=== PATIENT | female | born 1970 | race Caucasian/White ===

== ENCOUNTER 2017-08-05 06:00 | Inpatient (IN) | payer MEDICAID ==
[2017-08-05] MEDS ORDERED: Gabapentin 300 MG Cap PO ONE (06:15)
[2017-08-05] MEDS ORDERED: Scopolamine 1.5 MG Transdermal Patch TOP SCH (06:15)
[2017-08-05] MEDS ORDERED: Glycopyrrolate 0.2 MG/ML 5 ML MDV ONE (06:28)
[2017-08-05] MEDS ORDERED: Succinylcholine 200 MG/10 ML MDV ONE (06:28)
[2017-08-05] MEDS ORDERED: Rocuronium 50 MG/5 ML Vial ONE (06:28)
[2017-08-05] MEDS ORDERED: Ondansetron 4 MG/2 ML SDV ONE (06:28)
[2017-08-05] MEDS ORDERED: Dexamethasone 4 MG/ML SDV ONE (06:28)
[2017-08-05] MEDS ORDERED: Propofol 200 MG/20 ML SDV ONE (06:28)
[2017-08-05] MEDS ORDERED: Neostigmine Methylsulfate 1 MG/ML 5 ML Syringe ONE (06:28)
[2017-08-05] MEDS ORDERED: fentaNYL 250 MCG/5 ML SDV ONE ×2 (06:29→09:57)
[2017-08-05] MEDS ORDERED: Thrombin (Bovine) 5,000 Unit Kit ONE (06:55)
[2017-08-05] MEDS ORDERED: Povidone-Iodine 10% Soln 118.25 ML Bottle ONE (06:55)
[2017-08-05] MEDS ORDERED: Lactated Ringers 1,000 ML IV SCH (07:00)
[2017-08-05] MEDS ORDERED: Acetaminophen 500 MG Tab PO ONE (07:17)
[2017-08-05] MEDS ORDERED: Naloxone 0.4 MG/ML SDV IVPUSH PRN (07:21)
[2017-08-05] MEDS ORDERED: HYDROmorphone/Normal Saline 15 MG/30 ML PCA IV PRN (07:21)
[2017-08-05] MEDS ORDERED: ceFAZolin 2 GM in Premix Bag 1 BAG IV ONE (07:30)
[2017-08-05] MEDS ORDERED: Ketamine 500 MG/5 ML MDV IV SCH (07:45)
[2017-08-05] MEDS: SODIUM CHLORIDE 0.9% IV SCH ×2 (08:55→10:41)
[2017-08-05] MEDS: TRANEXAMIC ACID IV SCH ×2 (08:55→10:41)
[2017-08-05] MEDS ORDERED: Linezolid 200 MG/100 ML Bag IRR ONE (09:46)
[2017-08-05] MEDS ORDERED: hydrOXYzine HCl 100 MG/2 ML SDV IM ONE (10:37)
[2017-08-05] MEDS ORDERED: Ondansetron 4 MG/2 ML SDV IV PRN (12:43)
[2017-08-05] MEDS ORDERED: hydrOXYzine HCl 25 MG Tab PO PRN (12:44)
[2017-08-05] MEDS ORDERED: hydrOXYzine HCl 100 MG/2 ML SDV IM PRN (12:44)
[2017-08-05] MEDS ORDERED: Cyclobenzaprine 10 MG Tab PO PRN (12:45)
--- NOTE | 2017-08-05 13:15 | OR ---
DATE OF PROCEDURE: 08/05/2017 PREOPERATIVE DIAGNOSIS: L5-S1 stenosis. POSTOPERATIVE DIAGNOSIS: L5-S1 stenosis. PROCEDURE: Anterior lumbar interbody fusion L5-S1. CO-SURGEON: Moses Johnson MD. BRASS PLATER: ALPHONSO Bean. ANESTHESIA: General endotracheal intubation. FLUIDS: Lactated Ringer solution. ESTIMATED BLOOD LOSS: Less than 25 mL. COMPLICATIONS: None. SPECIMEN: None. DISCHARGE DISPOSITION: Stable to PACU. INSTRUMENTATION: Globus Magnify-S 25 x 31, 15-degree 12-15 mm implant with two 30 x 5.5 mm screws and one 25.5 mm screw. INDICATION FOR THE PROCEDURE: The patient was seen preoperatively in the clinic. She had failed laminectomy procedures. She failed nonoperative treatment. Preoperative imaging confirmed the above-mentioned diagnosis. Risks and benefits of the procedure were explained to the patient. Informed consent was obtained. DETAILS OF PROCEDURE: The patient was seen preoperatively by myself and the anesthesia staff as well as Dr. Johnson in the preop holding area where the operative site was marked. She was brought to the operative suite by the anesthesia staff where general anesthesia was administered. Neuromonitoring leads were placed and were normal throughout the procedure. Harris catheter was placed. The patient was then prepped and draped in a sterile manner. Time-out was called identifying correct patient, correct procedure, correct site, and antibiotics had begun within appropriate of time, sterilely draped. Fluoroscope was then used in a lateral position to identify the interspace at L5-S1. Please see Dr. Kwesi Johnson's notes for exposure. After appropriate exposure, I then used Bovie electrocautery to go through the anterior annulus and then used a deep 15 blade to go through the disk to the annulus along the vertebral endplates. I then used a Hartman to loosen the disk from the endplates and then removed the disk en bloc using the pituitary. I then used curettes and Kerrisons to remove the disk and then prepare the endplates. I then placed trial spacers at 9, 11, and 13 mm. I then inserted the trial at 13 mm and confirmed this in good position on fluoroscopy. I then inserted my final implant after placing Globus Signify allograft in the implant, and then under fluoroscopic visualization, I placed the implant and then expanded it. This expanded very nicely. I then awl'd, tapped, and placed my screws and then took final films. Please see Dr. Kwesi Johnson's notes for closure. Isidro Johnson DO /[id number]
[2017-08-05] MEDS: Pantoprazole 40 MG Vial IV SCH ×2 (15:23→15:28)
[2017-08-05] MEDS: VERIFY SCOP PATCH TOP SCH ×2 (15:23→21:00)
[2017-08-05] MEDS: ceFAZolin 2 GM in Premix Bag 1 BAG IV SCH ×2 (15:29→23:18)
[2017-08-05] MEDS: Dextrose 5%-Lactated Ringers 1,000 ML IV SCH ×2 (15:29→22:34)
[2017-08-06] MEDS: Dextrose 5%-Lactated Ringers 1,000 ML IV SCH (05:56)
[2017-08-06] MEDS: ceFAZolin 2 GM in Premix Bag 1 BAG IV SCH (07:18)
[2017-08-06] MEDS: VERIFY SCOP PATCH TOP SCH ×2 (08:12→20:52)
--- NOTE | 2017-08-06 08:40 | PN ---
DATE OF SERVICE: 08/06/2017 SUBJECTIVE: Christel is postop day #1 following ALIF. She has been up ambulating, stating her pain is controlled. She is on a clear liquid diet, tolerating it well. Vital signs have been stable. REVIEW OF SYSTEMS: Remainder of review of systems is negative for any pertinent positives and negatives. OBJECTIVE: GENERAL: Christel Cortez is a 46-year-old female. She is alert and oriented, sitting up in the chair. VITAL SIGNS: TPR 98, 95, 16. Blood pressure 114/76. HEENT: Negative. NECK: Supple. HEART: Regular rate and rhythm. LUNGS: Clear. ABDOMEN: Dressings dry and intact. Abdominal binder is on. EXTREMITIES: Without peripheral edema. ASSESSMENT: Anterior lumbar interbody fusion, L5-S1. Date of surgery, 08/05/2017. PLAN: 1. Saline lock IV when oral intake is adequate. 2. Discontinue Harris. 3. Regular diet. 4. Discontinue GROUND OPERATIONS SUPERVISOR and continuous pulse ox. 5. Percocet 5/325 mg 1 to 2 every 4 hours p.r.n. pain. 6. Colace 100 mg b.i.d. p.o. 7. Dressing off, may shower. 8. We will evaluate p.r.n. or in a.m. Laney Chung PA-C /[id number]
[2017-08-06] MEDS: Acetaminophen/oxyCODONE 325-5 MG Tab PO PRN ×4 (08:54→22:37)
[2017-08-06] MEDS: Docusate Sodium 100 MG Cap PO SCH ×2 (08:55→20:15)
--- NOTE | 2017-08-06 17:40 | OR ---
DATE OF PROCEDURE: 08/05/2017 PREOPERATIVE DIAGNOSIS: Lumbar spinal stenosis involving L5-S1. OPERATIVE PROCEDURE: Anterior lumbar interspinal fusion, L5-S1 ([id number]). ANESTHESIA: General. CO-SURGEON: Isidro Johnson DO. TANBARK PEELER: ALPHONSO Bean. INDICATION FOR PROCEDURE: This is a 46-year-old presenting for an anterior lumbar interspinal fusion of L5-S1. To provide access, General Surgery is participating. Potential risks of the procedure including bleeding, infection, injury to the vascular structures with potential life-threatening bleeding and/or occlusive complications, injury to the other viscera including the ureter and neuroplexus overlying the lumbar spine were all reviewed, and the patient wishes to proceed. DETAILS OF PROCEDURE: The patient was taken to the operating room and placed in a supine position. After general endotracheal anesthesia was induced, a Harris catheter was inserted. A roll was placed underneath the left knee to offload the tension on the psoas muscle. A left lower paramedian incision was then made and carried down through the skin and subcutaneous tissue and through the rectus sheath. The rectus muscle was then retracted medially, and the plane in front of the psoas muscle was established, and the peritoneum dissected off those areas. Dissection then continued up in front of the aorta and vena cava as well as the left iliac vessels. At that point, we sequentially placed retractors. The middle sacral vessels were taken with Harmonic scalpel and the retractor was then placed, exposing the anterior aspect of the L5-S1 interspace. With adequate exposure and retractors in place, Dr. Isidro Johnson then completed the interspinal fusion portion of the procedure, which will be under a separate dictation. Following completion of that, the area was inspected and irrigated with a Zyvox-containing saline solution. The retractors were sequentially taken down. The pulses in the aorta and iliac vessels were both adequate, and there appeared to be no venous injuries or other significant vascular problems. The ureter was also suspected and found to be intact. Following this, with removal of the retractors, the anterior rectus sheath was closed with a running #2 Vicryl stitch, the subcutaneous tissue with 4-0 Vicryl stitch, and the skin with víctor. The patient was taken to the recovery room in a satisfactory condition. Kwesi Johnson MD /[id number]
[2017-08-06] MEDS ORDERED: Ondansetron 4 MG Tab.DIS PO PRN (20:04)
[2017-08-07] MEDS: Acetaminophen/oxyCODONE 325-5 MG Tab PO PRN ×2 (03:31→08:09)
[2017-08-07] MEDS: VERIFY SCOP PATCH TOP SCH (08:02)
[2017-08-07] MEDS: Docusate Sodium 100 MG Cap PO SCH (08:05)
--- NOTE | 2017-08-08 05:48 | DISCH ---
ADMISSION DIAGNOSES: Back pain, hypertension, tobacco dependence, and spinal stenosis of lumbar region with neurogenic claudication. DISCHARGE DIAGNOSIS: Anterior lumbar interbody fusion, L5 to S1. Date of surgery 08/05/2017. Surgeons; Kwesi Johnson M.D. and Isidro Johnson D.O. HISTORY: Christel is a 46-year-old female presenting with anterior lumbar intraspinal fusion of L5 to S1. After preoperative evaluation and discussion of possible risks and possible complications, she wished to proceed with surgical procedure. HOSPITAL COURSE: Christel had her surgery on 08/05/2017. She had no operative complications. On postop day #1, she was changed to oral pain medication, regular diet. FELTER TENNIS BALLS was discontinued. Started on oral stool softener. She had a shower and received physical therapy. On postop day #2, vital signs were stable. Pain was well managed. Activity was good. She was able to be discharged to home. PHYSICAL EXAMINATION: GENERAL: Christel Cortez is a 46-year-old female. VITAL SIGNS: Height is 5 feet 4.96 inches, weight is 109 pounds. TPR 98.7, 67, 17. Blood pressure 112/72. HEENT: Negative. NECK: Supple. HEART: Regular rate and rhythm. LUNGS: Clear. ABDOMEN: Soft. Normally tender. Teri intact. Has been wearing her abdominal binder and back brace when up. EXTREMITIES: Without peripheral edema. DISPOSITION: Discharged to home. CONDITION: Stable and improving. FOLLOWUP APPOINTMENT: With Isidro Johnson D.O., per his schedule and Kwesi Johnson M.D., 08/13/2017 at 11:00 a.m. HOME MEDICATIONS: 1. Percocet 5/325 mg 1 to 2 every 4 hours p.r.n. pain, #50. 2. Flexeril 10 mg q.6 hours p.r.n. muscle spasms, #30. 3. Colace 100 mg b.i.d., #100. She currently is on no home medications that were listed. DISCHARGE INSTRUCTIONS: 1. Diet after discharge: Regular diet. Drink 8 to 10 glasses of water a day. 2. Activity: No lifting greater than 10 pounds for 6 weeks. Other activity per Physical Therapy. 3. Driving: Do not drive while on pain medication. 4. Shower/bathing: May shower. 5. Keep operative site clean and dry. Wear abdominal binder for 6 weeks. 6. Notify provider if any fever or increased pain. OTHER INSTRUCTIONS: 1. Use incentive spirometer 10 times every hour while awake for 1 week. 2. Continue not to smoke. 3. Follow postop instructions per Isidro Johnson M.D., in regard to your back surgery in addition to these postoperative instructions.
== END 2017-08-07 09:23 | disposition home or self-care (01) | DRG 460 ==
LOC: JP.SDS 06:00 → JP.SDSSCHI 06:00 → EDSTATUS 10:15 → JP.MS 10:45
PROVIDERS: ADMIT Orthopaedic Surgery; ATTEND Orthopaedic Surgery
PROC: 0SG03A0 Fusion of Lumbar Vertebral Joint with Interbody Fusion Device, Anterior Approach, Anterior Column, Percutaneous Approach (ICD-10-PCS; principal; 2017-08-05)
PROC: 0ST20ZZ Resection of Lumbar Vertebral Disc, Open Approach (ICD-10-PCS; 2017-08-05)
DX: M48.062 Spinal stenosis, lumbar region with neurogenic claudication (principal); M54.16 Radiculopathy, lumbar region; F17.210 Nicotine dependence, cigarettes, uncomplicated; Z91.040 Latex allergy status
CPT/HCPCS: 36415; 80048; 83735; 84100; 85027; 86850; 86900; 86901; 86920; 86922; 94762; 97110-GP; 97162-GP; 97165-GO; 97530-GP; 97535-GP; A9270-GY; C1713; C9113; J0330; J0690; J1100; J1170; J2020; J2405; J2704; J2710; J3010; J3410; J7030; J7042; J7050; J7120